=== PATIENT | female | born 1975 | race Caucasian/White ===

== ENCOUNTER 2025-03-18 08:13 | Outpatient (CLI) | payer OTHER | END 2025-03-18 08:14 | disposition home or self-care (01) | LOC: ULT 08:13 | PROVIDERS: ATTEND Nurse Practitioner Family | DX: R10.84 Generalized abdominal pain (principal); D25.9 Leiomyoma of uterus, unspecified; N83.202 Unspecified ovarian cyst, left side | CPT/HCPCS: 76700; 76856 ==